=== PATIENT | female | born 1995 ===

== ENCOUNTER 2016-11-04 10:55 | Emergency (ER) | payer OTHER ==
[~2016-11-04] VITALS: Ht 157.5 cm; Wt 52.5 kg
[2016-11-04 11:05] VITALS: Ht 157.5 cm; Wt 52.5 kg
[2016-11-04] MEDS ORDERED: BCPILLS PO (11:23)
[2016-11-04] MEDS ORDERED: CLR10 PO (11:24)
[2016-11-04] MEDS ORDERED: SODIUM CHLORIDE 0.9% 1000ML 1,000 ML IV STA (11:30)
[2016-11-04 11:44] LABS: BASO % 0.2 %; BASO ABS # 0.03 K/uL (0-0.2); COMPLETE YES; EOS % 0.1 %; IG% 0.3 %; LYMPH % 7.9 %; LYMPH ABS # 1.41 K/uL (1.2-3.4); MEAN CELL VOLUME 87.8 fL (80-100); MEAN CORPUSCULAR HEMOGLOBIN 31.3 pg (25-34); MEAN CORPUSCULAR HGB CONC 35.6 g/dl (32-36); MEAN PLATELET VOLUME 9.2 fL (7.4-10.4); MONO % 4.1 %; NEUT % 87.4 %; PLATELET COUNT 269 K/uL (130-400); RED BLOOD COUNT 4.44 M/uL (4.2-5.4); WHITE BLOOD COUNT 17.88 K/uL (4.8-10.8)
[2016-11-04 11:48] LABS: URINE APPEARANCE CLEAR (CLEAR); URINE BILIRUBIN NEG (NEG); URINE COLOR YELLOW; URINE EPITHELIAL CELL AUTO >30 /lpf (0-5); URINE NITRITE NEG (NEG); URINE SPECIFIC GRAVITY 1.033 (1.000-1.030); UROBILINOGEN NEG (NEG)
[2016-11-04] MEDS: HYDROmorphone INJ 0.5 MG/0.5 ML SYR IV PRN ×3 (11:57→14:38)
[2016-11-04] MEDS ORDERED: ONDANSETRON INJ 2 MG/ML 2 ML VIAL IV PRN (12:00)
[2016-11-04 12:04] LABS: ALT/SGPT 17 U/L (12-78); AST/SGOT 13 U/L (15-37); BLOOD UREA NITROGEN 14 mg/dl (7-18); BUN/CREATININE RATIO 15.2 (10-20); CARBON DIOXIDE 25 mmol/L (21-32); CHLORIDE 107 mmol/L (98-107); CREATININE 0.93 mg/dl (0.60-1.20); GLUCOSE 109 mg/dl (70-99); POTASSIUM 3.9 mmol/L (3.5-5.1); SODIUM 139 mmol/L (136-145)
[2016-11-04 12:04] LABS: MANUAL MICROSCOPIC REQUIRED? NO; REVIEW REQ? YES
[2016-11-04 12:06] LABS: URINE MUCUS PRESENT (NONE PRSENT)
[2016-11-04 12:07] LABS: ZZUR CULT IF INDIC CLEAN CATCH YES
[2016-11-04 12:07] LABS: ALKALINE PHOSPHATASE 55 U/L (45-117)
--- NOTE | 2016-11-04 12:42 | DIAGNOSTIC IMAGING REPORT ---
CT OF THE ABDOMEN AND PELVIS WITHOUT CONTRAST, STONE PROTOCOL CLINICAL HISTORY: Right flank pain. COMPARISON STUDY: None. TECHNIQUE: Helical axial images of the abdomen and pelvis were obtained without IV or oral contrast according to renal stone protocol. FINDINGS: A 3 mm distal right ureteral calculus results in mild right hydroureteronephrosis. There is perinephric and periureteral ureteral infiltration. Several right renal calculi measure up to 4 mm. Unenhanced images of the liver, spleen, adrenal glands and pancreas are normal. There is no evidence for a bowel obstruction. There is no lymphadenopathy. Trace fluid within the pelvis is likely physiologic. Skeletal structures are unremarkable. IMPRESSION: 1. 3 mm distal right ureteral calculus which results in mild right hydroureteronephrosis. 2. Right-sided nephrolithiasis. Electronically signed by: Calixto Waite M.D. 11/04/2016 12:40 PM Dictated Date/Time: 11/04/2016 12:32 PM
[2016-11-04] MEDS ORDERED: PROM25TA9 PO (16:19)
[2016-11-04] MEDS ORDERED: OXYC1TAB3 PO (16:19)
--- NOTE | 2016-11-04 16:29 | EMERGENCY ROOM VISIT NOTE ---
History Report prepared by Mey: Joseph Peter Under the Supervision of: Dr. Dean Squires M.D. First contact with patient: 11:30 Chief Complaint: KIDNEY STONE Stated Complaint: POSSIBLE KIDNEY STONE History of Present Illness The patient is a 21 year old female who presents to the Emergency Room with complaints of sudden worsening right flank pain starting around 0745 this morning. The patient currently rates her discomfort as a 6/10 in severity. She additionally states that she vomited this morning. She states that she went to [email or web address] this morning, and they told her that she has blood in her urine. Additionally, she states that her last menstrual period ended last week, and it was normal. The patient states that she has never had a pain like this other than constipation, however this is much worse. The patient denies any medical history, and she has no family history of kidney stones. Additionally, she denies any falls or lifting anything recently. Pt denies LOC, headache, fevers, chills, diaphoresis, visual changes, neck pain, chest pain, breathing difficulties, nausea, vomiting, abdominal pain, back pain, melena, hematochezia , urinary symptoms, numbness, weakness, lymphadenopathy, rash, or other complaints. Source of History: patient Onset: 0745 Position: other (right flank) Symptom Intensity: 6/10 Timing: worsening, other (sudden) Associated Symptoms: + vomiting Review of Systems See HPI for pertinent positives and negatives. A total of ten systems were reviewed and were otherwise negative. Past Medical & Surgical Medical Problems: (1) No known problems Social History Smoking Status: Never Smoker Marital Status: single Housing Status: lives with roommate Occupation Status: [employer] student Current/Historical Medications Scheduled Control Pills ( Control Pills), 1 TAB PO DAILY Loratadine (Claritin), 10 MG PO DAILY Scheduled PRN Oxycodone Ir (Roxicodone Ir), 1-2 TAB PO Q4H PRN for Pain Promethazine Hcl (Phenergan), 25 MG PO Q6H PRN for Nausea Allergies Coded Allergies: No Known Allergies (Unverified , 11/04/16) Physical Exam Vital Signs Date Time Temp Pulse Resp B/P Pulse Ox O2 Delivery O2 Flow Rate FiO2 11/04/16 16:01 88 18 115/67 100 Room Air 11/04/16 12:00 108 11/04/16 11:05 36.7 93 18 155/77 100 Room Air Physical Exam GENERAL: Awake, alert, uncomfortable-appearing, in no distress HENT: Normocephalic, atraumatic. Oropharynx unremarkable. EYES: Normal conjunctiva. Sclera non-icteric. NECK: Supple. No nuchal rigidity. FROM. No JVD. RESPIRATORY: Clear to auscultation. CARDIAC: Regular rate, normal rhythm. Extremities warm and well perfused. Pulses equal. ABDOMEN: Right upper quadrant tenderness. Soft, non-distended. No rebound or guarding. No masses. RECTAL: Deferred. MUSCULOSKELETAL: Right CVA tenderness. Chest examination reveals no tenderness. The back is symmetrical on inspection without obvious abnormality. No joint edema. LOWER EXTREMITIES: Calves are equal size bilaterally and non-tender. No edema. No discoloration. NEURO: Normal sensorium. No sensory or motor deficits noted. SKIN: No rash or jaundice noted. Medical Decision & Procedures ER Provider Diagnostic Interpretation: Radiology results as stated below per my review and radiologist interpretation: CT OF THE ABDOMEN AND PELVIS WITHOUT CONTRAST, STONE PROTOCOL CLINICAL HISTORY: Right flank pain. COMPARISON STUDY: None. TECHNIQUE: Helical axial images of the abdomen and pelvis were obtained without IV or oral contrast according to renal stone protocol. FINDINGS: A 3 mm distal right ureteral calculus results in mild right hydroureteronephrosis. There is perinephric and periureteral ureteral infiltration. Several right renal calculi measure up to 4 mm. Unenhanced images of the liver, spleen, adrenal glands and pancreas are normal. There is no evidence for a bowel obstruction. There is no lymphadenopathy. Trace fluid within the pelvis is likely physiologic. Skeletal structures are unremarkable. IMPRESSION: 1. 3 mm distal right ureteral calculus which results in mild right hydroureteronephrosis. 2. Right-sided nephrolithiasis. Electronically signed by: Calixto Waite M.D. 11/04/2016 12:40 PM Dictated Date/Time: 11/04/2016 12:32 PM Laboratory Results 11/04/16 11:35 Red Blood Count 4.44, Mean Corpuscular Volume 87.8, Mean Corpuscular Hemoglobin 31.3, Mean Corpuscular Hemoglobin Concent 35.6, Mean Platelet Volume 9.2, Neutrophils (%) (Auto) 87.4, Lymphocytes (%) (Auto) 7.9, Monocytes (%) (Auto) 4.1, Eosinophils (%) (Auto) 0.1, Basophils (%) (Auto) 0.2, Neutrophils # (Auto) 15.65, Lymphocytes # (Auto) 1.41, Monocytes # (Auto) 0.73, Eosinophils # (Auto) 0.01, Basophils # (Auto) 0.03 11/04/16 11:35 Test 11/04/16 11:30 11/04/16 11:35 Urine Color YELLOW Urine Appearance CLEAR (CLEAR) Urine pH 6.0 (4.5-7.5) Urine Specific [place] 1.033 (1.000-1.030) Urine Protein NEG (NEG) Urine Glucose (UA) NEG (NEG) Urine Ketones NEG (NEG) Urine Occult Blood 3+ (NEG) Urine Nitrite NEG (NEG) Urine Bilirubin NEG (NEG) Urine Urobilinogen NEG (NEG) Urine Leukocyte Esterase NEG (NEG) Urine WBC (Auto) 1-5 /hpf (0-5) Urine RBC (Auto) >30 /hpf (0-4) Urine Hyaline Casts (Auto) 1-5 /lpf (0-5) Urine Epithelial Cells (Auto) >30 /lpf (0-5) Urine Bacteria (Auto) 1+ (NEG) Urine Renal Epithelial Cells /lpf (0-5) Urine Mucus PRESENT (NONE PRSENT) Urine Test NEG (NEG) White Blood Count 17.88 K/uL (4.8-10.8) Red Blood Count 4.44 M/uL (4.2-5.4) Hemoglobin 13.9 g/dL (12.0-16.0) Hematocrit 39.0 % (37-47) Mean Corpuscular Volume 87.8 fL (80-100) Mean Corpuscular Hemoglobin 31.3 pg (25-34) Mean Corpuscular Hemoglobin Concent 35.6 g/dl (32-36) Platelet Count 269 K/uL (130-400) Mean Platelet Volume 9.2 fL (7.4-10.4) Neutrophils (%) (Auto) 87.4 % Lymphocytes (%) (Auto) 7.9 % Monocytes (%) (Auto) 4.1 % Eosinophils (%) (Auto) 0.1 % Basophils (%) (Auto) 0.2 % Neutrophils # (Auto) 15.65 K/uL (1.4-6.5) Lymphocytes # (Auto) 1.41 K/uL (1.2-3.4) Monocytes # (Auto) 0.73 K/uL (0.11-0.59) Eosinophils # (Auto) 0.01 K/uL (0-0.5) Basophils # (Auto) 0.03 K/uL (0-0.2) RDW Standard Deviation 38.2 fL (36.4-46.3) RDW Coefficient of Variation 11.9 % (11.5-14.5) Immature Granulocyte % (Auto) 0.3 % Immature Granulocyte # (Auto) 0.05 K/uL (0.00-0.02) Anion Gap 7.0 mmol/L (3-11) Est Creatinine Clear Calc Drug Dose 76.3 ml/min Estimated GFR () 102.5 Estimated GFR (Non- 88.5 BUN/Creatinine Ratio 15.2 (10-20) Calcium Level 9.0 mg/dl (8.5-10.1) Total Bilirubin 0.3 mg/dl (0.2-1) Direct Bilirubin < 0.1 mg/dl (0-0.2) Aspartate Amino Transf (AST/SGOT) 13 U/L (15-37) Alanine Aminotransferase (ALT/SGPT) 17 U/L (12-78) Alkaline Phosphatase 55 U/L (45-117) Total Protein 8.1 gm/dl (6.4-8.2) Albumin 4.2 gm/dl (3.4-5.0) Lipase 116 U/L (73-393) Laboratory results reviewed by me Medications Administered Medications (Trade) Dose Ordered Sig/Henry Route Start Time Stop Time Status Last Admin Dose Admin Sodium Chloride (Nss 1000ml) 1,000 ml @ 999 mls/hr Q1H1M STAT IV 11/04/16 11:30 11/04/16 12:30 DC 11/04/16 11:42 999 MLS/HR Ondansetron HCl (Zofran Inj) 4 mg PRN PRN IV 11/04/16 12:00 12/04/16 11:59 11/04/16 11:57 4 MG Hydromorphone HCl (Dilaudid Inj) 0.5 mg Q20M PRN IV 11/04/16 12:00 11/18/16 11:59 11/04/16 14:38 0.5 MG ED Course 1130: Sodium Chloride 1000 ml @ 999 mls/hr IV 1140: The patient was evaluated in room B7. A complete history and physical exam was performed. 1200: Dilaudid Inj 0.5mg IV, Zofran Inj 4mg IV 1232: I reevaluated the patient, and she is feeling better after getting the medications. 1443: I reevaluated the patient, and she was still uncomfortable. 1451: I discussed the patient's case with Dr. Medrano. He is going to evaluate the patient for further treatment Medical Decision Prior records/ancillary studies reviewed. Triage Nursing notes reviewed and agree them. The patient's history was concerning for flank and abdominal pain. Differential diagnosis: Etiologies such as renal colic, appendicitis, diverticulitis, mesenteric ischemia, aortic pathology, infections, inflammatory bowel disease, PUD, biliary pathology, UTI, as well as others were entertained. Physical examination findings: As above. No peritoneal findings. ER treatment provided: Normal saline hydration IV Zofran IV Dilaudid 0.5 mg 3 Initially the patient was still having pain after the above treatment. I discussed staying in the hospital. She was in agreement. The patient then noted feeling much better. On reassessment the patient felt better and desired discharge. Diagnostic interpretation by me: The labs revealed a moderate leukocytosis. CBC and chem panel otherwise unremarkable. Normal renal function. Urinalysis did show blood. There was many epithelial cells and some bacteria. It appears more contaminated than actual UTI. negative. Imaging studies: CT of the abdomen and pelvis as above. Consultation: A consultation was placed with the hospitalist. The case was discussed and diagnostics were reviewed. The patient decided to go home prior to hospitalist evaluation. It appears that the patient has isolated renal colic from a right sided stone. I told her to have a low threshold to return and explained the need for close follow up. By the evaluation outlined above emergent etiologies such as appendicitis, diverticulitis, mesenteric ischemia, aortic pathology, infections, inflammatory bowel disease, PUD, biliary pathology, UTI, as well as others were deemed relatively unlikely. The patient was informed about the findings as listed above. All questions were answered and she was pleased with the treatment. Return instructions were outlined and the patient was discharged in stable condition. Outpatient prescription management: Oxy IR 5mg 1-2 po Q4 hrs prn Phenergan Referral: The pt was referred to [facility] for follow up care regarding their stone. The chart was completed utilizing [employer] Speech voice recognition software. Grammatical errors, random word insertions, pronoun errors, and incomplete sentences are an occasional consequence of this system due to software limitations, ambient noise, and hardware issues. Any formal questions or concerns about the content, text, or information contained within the body of this dictation should be directly addressed to the physician for clarification. [place] Drug Monitoring Program Search Results: patient reviewed within database, no issues identified Consults Time Called: 144 Consulting Physician: Dr. Medrano Returned Call: [phone] I discussed the patient's case with Dr. Medrano. He is going to evaluate the patient for further treatment Impression Primary Impression: Kidney stone Scribe Attestation The scribe's documentation has been prepared under my direction and personally reviewed by me in its entirety. I confirm that the note above accurately reflects all work, treatment, procedures, and medical decision making performed by me. Departure Information Dispostion Being Evaluated By Hospitalist Prescriptions Promethazine Hcl (Phenergan) 25 Mg Tab 25 MG PO Q6H Y for Nausea, #10 TAB Prov: Dean Squires MD 11/04/16 Oxycodone Ir (Roxicodone Ir) 5 Mg Tab 1-2 TAB PO Q4H Y for Pain, #15 TAB Prov: Dean Squires MD 11/04/16 Referrals No Doctor, Assigned (PCP) Patient Instructions My [facility]
[2016-11-04 16:38] VITALS: BP 113/61; PULSE 100; TEMP 36.7; O2SAT 100
== END 2016-11-04 16:39 | disposition hospice, home (50) ==
LOC: C.EDB 10:59
DX: N20.0 Calculus of kidney (principal); Z79.3 Long term (current) use of hormonal contraceptives; Z79.899 Other long term (current) drug therapy